=== PATIENT | male | born 1975 | race Native Hawaiian/Other Pacific Islander ===

== ENCOUNTER 2019-04-06 12:46 | Emergency (ER) | payer OTHER ==
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
--- NOTE | 2019-04-06 14:23 | XRay Report ---
CERVICAL SPINE HISTORY: Pain. COMPARISON: None. TECHNIQUE: 4 views of the cervical spine obtained. FINDINGS: Vertebrae: Normal alignment. No fracture or significant abnormality. Disc Spaces:No significant abnormality. Facet Joints:No significant abnormality. Prevertebral Soft Tissues:No significant abnormality. Additional findings: None. IMPRESSION: 1. No significant abnormality of the cervical spine. Signer Name: Jorge Reeves MD Signed: 04/06/2019 2:18 PM Workstation Name: [id number]
[2019-04-06 14:45] VITALS: BP 136/92
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
== END 2019-04-06 15:20 | disposition home or self-care (01) ==
LOC: ED 12:46
DX: S13.9XXA Sprain of joints and ligaments of unspecified parts of neck, initial encounter (principal); Z79.899 Other long term (current) drug therapy; Z90.49 Acquired absence of other specified parts of digestive tract; V89.2XXA Person injured in unspecified motor-vehicle accident, traffic, initial encounter; Y93.89 Activity, other specified; Y92.488 Other paved roadways as the place of occurrence of the external cause; Y99.8 Other external cause status
CPT/HCPCS: 72040; 99283

== ENCOUNTER 2019-05-19 17:27 | Emergency (ER) | payer OTHER ==
--- NOTE | 2019-05-19 17:49 | Emergency Department Report ---
Blank Doc - Documentation Documentation: 43-year-old male that presents with right elbow pain. This initial assessment/diagnostic orders/clinical plan/treatment(s) is/are subject to change based on patient's health status, clinical progression and re- assessment by fellow clinical providers in the ED. Further treatment and workup at subsequent clinical providers discretion. Patient/guardians urged not to elope from the ED as their condition may be serious if not clinically assessed and managed. Initial orders include: 1- Patient sent to [facility] for further evaluation and treatment 2- xrays
--- NOTE | 2019-05-19 18:19 | XRay Report ---
XR elbow 3+V RT INDICATION / CLINICAL INFORMATION: elbow pain. COMPARISON: None available. FINDINGS: BONES/JOINT(S): No acute fracture or subluxation. No significant degenerative changes. SOFT TISSUES: No significant abnormality. ADDITIONAL FINDINGS: None. Signer Name: Maurisio Salinas MD Signed: 05/19/2019 6:15 PM Workstation Name: [id number]
[2019-05-19] MEDS ORDERED: HYDROcodone/ACETAMINOPHEN 5-325 MG TAB PO ONE (20:36)
--- NOTE | 2019-05-19 20:52 | Emergency Department Report ---
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 pain 4/10 for past 2 days. 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 there is no numbness. there is tingling no swelling no deformity. MD Complaint: Injury to:: right, elbow Onset/Timin -: days(s) Other Extremity Injury: Elbow: Right Other Injuries: none Handedness: right Place: work Severity scale (0 -10): 5 Improves With: none Worsens With: movement of extremity Associated Symptoms: other (tingling) Treatments Prior to Arrival: other (none) - Related Data Previous Rx's Medication Instructions Recorded Last Taken Type Ciprofloxacin 0.3% (Nf) 2 drop OU QID #5 ml 05/16/15 Unknown Rx [Ciprofloxacin OPTH] HYDROcodone/APAP 5-325 [[place] 1 each PO Q6HR PRN #10 tablet 04/06/19 Unknown Rx 5-325 mg TAB] Metaxalone [Skelaxin] 800 mg PO TID PRN #15 tablet 04/06/19 Unknown Rx Naproxen [Naprosyn] 500 mg PO BID #15 tablet 04/06/19 Unknown Rx Cyclobenzaprine [Flexeril] 10 mg PO TID PRN #30 tablet 05/19/19 Unknown Rx Menthol/Camphor [Roxie [place] 1 applicatio TP QID PRN #1 tube 05/19/19 Unknown Rx Ointment] Naproxen [Naprosyn] 500 mg PO BID PRN #30 tablet 05/19/19 Unknown Rx Allergies Allergy/AdvReac Type Severity Reaction Status Date / Time No Known Allergies Allergy Verified 05/16/15 01:59 ED Review of Systems ROS: Stated complaint: RT ARM INJURY Other details as noted in HPI Constitutional: denies: chills, fever Eyes: denies: eye pain, eye discharge, vision change ENT: denies: ear pain, throat pain Respiratory: denies: cough, shortness of breath, wheezing Cardiovascular: denies: chest pain, palpitations Endocrine: no symptoms reported Gastrointestinal: denies: abdominal pain, nausea, diarrhea Genitourinary: denies: urgency, dysuria Musculoskeletal: myalgia, other (right elbow pain) Skin: denies: rash, lesions Neurological: denies: headache, weakness, paresthesias Psychiatric: denies: anxiety, depression Hematological/Lymphatic: denies: easy bleeding, easy bruising ED Past Medical Hx - Past Medical History Previous Medical History?: No Hx Hypertension: No - Surgical History Hx Appendectomy: Yes Additional Surgical History: hernia repair - Social History Smoking Status: Never Smoker Substance Use Type: Alcohol - Medications Home Medications: Home Medications Medication Instructions Recorded Confirmed Last Taken Type Ciprofloxacin 0.3% (Nf) 2 drop OU QID #5 ml 05/16/15 Unknown Rx [Ciprofloxacin OPTH] HYDROcodone/APAP 5-325 [[place] 1 each PO Q6HR PRN #10 tablet 04/06/19 Unknown Rx 5-325 mg TAB] Metaxalone [Skelaxin] 800 mg PO TID PRN #15 tablet 04/06/19 Unknown Rx Naproxen [Naprosyn] 500 mg PO BID #15 tablet 04/06/19 Unknown Rx Cyclobenzaprine [Flexeril] 10 mg PO TID PRN #30 tablet 05/19/19 Unknown Rx Menthol/Camphor [Roxie [place] 1 applicatio TP QID PRN #1 tube 05/19/19 Unknown Rx Ointment] Naproxen [Naprosyn] 500 mg PO BID PRN #30 tablet 05/19/19 Unknown Rx ED Physical Exam - General Limitations: No Limitations General appearance: alert, in no apparent distress - Head Head exam: Present: atraumatic, normocephalic - Eye Eye exam: Present: normal appearance, PERRL, EOMI Pupils: Present: normal accommodation - ENT ENT exam: Present: mucous membranes moist - Neck Neck exam: Present: normal inspection, full ROM. Absent: tenderness - Respiratory Respiratory exam: Present: normal lung sounds bilaterally. Absent: respiratory distress - Cardiovascular Cardiovascular Exam: Present: regular rate, normal rhythm, normal heart sounds. Absent: systolic murmur, diastolic murmur, rubs, gallop - GI/Abdominal GI/Abdominal exam: Present: soft, normal bowel sounds. Absent: tenderness - Rectal Rectal exam: Present: deferred - Extremities Exam Extremities exam: Present: normal inspection - Back Exam Back exam: Present: normal inspection, full ROM. Absent: tenderness, CVA tenderness (R), CVA tenderness (L), rash noted - Neurological Exam Neurological exam: Present: alert, oriented X3, CN II-XII intact, normal gait, reflexes normal. Absent: motor sensory deficit - Expanded Neurological Exam Expanded Motor strength exam: RUE: 5, LUE: 5, RLE: 5, LLE: 5 DTR: tricep (R): 2+, tricep (L): 2+ - Psychiatric Psychiatric exam: Present: normal affect, normal mood - Skin Skin exam: Present: warm, dry, intact, normal color. Absent: rash ED Medical Decision Making - Radiology Data Radiology results: report reviewed, image reviewed Ordering Physician: VIRGILIO URIARTE NP Date of Service: 05/19/19 Procedure(s): XR elbow 3+V RT Accession Number(s): [id number] cc: VIRGILIO URIARTE NP Fluoro Time In Minutes: XR elbow 3+V RT INDICATION / CLINICAL INFORMATION: elbow pain. COMPARISON: None available. FINDINGS: BONES/JOINT(S): No acute fracture or subluxation. No significant degenerative changes. SOFT TISSUES: No significant abnormality. ADDITIONAL FINDINGS: None. Signer Name: Maurisio Salinas MD Signed: 05/19/2019 6:15 PM Workstation Name: [id number] Transcribed By: HUMBERTO Dictated By: Maurisio Salinas MD Electronically Authenticated By: Maurisio Salinas MD Signed Date/Time: 05/19/191814 DD/ 14 TD/TT: - Medical Decision Making right elbow joint is stable , xray: normal no fracture, distal pulses are intact, gold layer equal, pronation and supitnation with mild pain. This is a elbow sprain, plan, kristin, rice therapy, sling, follow up with orthpedics in 2-3 days return to emergency if symptoms worsen. pt verbalized agreement and und erstanding of discharge plan Critical care attestation.: If time is entered above; I have spent that time in minutes in the direct care of this critically ill patient, excluding procedure time. ED Disposition Clinical Impression: Strain of elbow and forearm Qualifiers: Encounter type: initial encounter Laterality: right Qualified Code(s): S56.911A - Strain of unspecified muscles, fascia and tendons at forearm level, right arm, initial encounter Disposition: TO HOME OR SELFCARE Is pt being admited?: No Does the pt Need Aspirin: No Condition: Stable Instructions: Muscle Strain (ED), Tennis Elbow (ED) Prescriptions: Cyclobenzaprine [Flexeril] 10 mg PO TID PRN #30 tablet PRN Reason: Muscle Spasm Naproxen [Naprosyn] 500 mg PO BID PRN #30 tablet PRN Reason: pain Menthol/Camphor [Roxie [place] Ointment] 1 applicatio TP QID PRN #1 tube PRN Reason: pain Referrals: DARIEN JEAN BAPTISTE MD [Staff Physician] - 3-5 Days Forms: Work/School Release Form(ED) Time of Disposition: 21:05
== END 2019-05-19 21:58 | disposition home or self-care (01) ==
LOC: ED 17:27
DX: S56.911A Strain of unspecified muscles, fascia and tendons at forearm level, right arm, initial encounter (principal); Z79.899 Other long term (current) drug therapy; W22.09XA Striking against other stationary object, initial encounter; Y93.89 Activity, other specified; Y92.69 Other specified industrial and construction area as the place of occurrence of the external cause; Y99.8 Other external cause status
CPT/HCPCS: 99284